=== PATIENT | male | born 1990 | race Caucasian/White ===

== ENCOUNTER 2020-03-06 09:45 | Emergency (ER) | payer OTHER, SELFPAY ==
[2018-09-08 11:49] VITALS: BMI 24.3
[2020-03-06 09:47] VITALS: BP 109/71; PULSE 71; RESP 18; TEMP 36.4; O2SAT 100; BMI 26.9
[2020-03-06 09:50] VITALS: BP 106/57; PULSE 83; RESP 16; O2SAT 100
[2020-03-06] MEDS: MethylPREDNISolone 125 MG/2 ML Vial IV (09:59)
[2020-03-06] MEDS: Famotidine 200 MG/20 ML MDV 20 MG in 0.9% Normal Saline (Pres. free 8 ML 300 MG IV (10:00)
[2020-03-06] MEDS: Ondansetron 4 MG/2 ML Vial IV (10:06)
--- NOTE | 2020-03-06 10:57 | ED.DCSUM_ITS ---
History of Present Illness Chief Complaint: Allergic Reaction Informant: Patient Onset: Today Context: Sudden Onset - Approximately 30 minutes prior to arrival Timing: Continuous Quality: Pruritic red blotchy rash, tingling of lips and throat, nausea Location: Generalized allergic reaction due to hymenoptera envenomation Current Severity: Moderate Maximum Severity: Moderate Worsened by: Nothing Relieved by: Improved with Benadryl prior to arrival Associated Symptoms: No change in voice, no dyspnea and no orthostatic symptoms Narrative: Patient is a 30-year-old male who presents after being stung by a bee. He was stung recently. His reaction was not as bad. He was not discharged with EpiPen. Patient denies headache, ocular, visual or auditory symptoms. Patient denies trouble with speech or swallowing. He denies cardiac or respiratory symptoms. He does report nausea without vomiting diarrhea. He denies orthostatic symptoms. He denies any other symptoms. Prior similar symptoms: Yes Recent Illness/Hospitalization: Yes - Past Medical History (1) Segmental and somatic dysfunction of cervical region Status: Acute (2) Segmental and somatic dysfunction of lumbar region Status: Acute (3) Segmental and somatic dysfunction of thoracic region Status: Acute Past Medical History - Allergies and Home Meds Allergies/Adverse Reactions: Allergies abacavir Allergy (Severe, Verified 06/27/17 16:03) Hives Sulfa (Sulfonamide Antibiotics) Allergy (Verified 05/30/18 09:59) Unknown Primary Care Physician: Lucía Monzon PA [Primary Care Provider] - Prior records reviewed: Yes Surgical History: no surgical history Lives: Spouse/ Significant Other Smoking Status: Never smoker Alcohol: Rare Drugs: None Review of Systems General: Denies: Chills, Fever, Sweats Eyes: Denies: Visual changes - bilaterally, Diplopia ENT: Reports: - - Of lips and tongue. He denies change in voice or difficulty swallowing.. Denies: Bilateral ear pain, Rhinorrhea, Sore throat Cardiovascular: Denies: Chest pain, Palpitations Respiratory: Denies: Dyspnea, Cough, Dyspnea on exertion Gastrointestinal: Reports: Nausea. Denies: Abdominal pain, Vomiting, Diarrhea, Melena, Hematochezia Genitourinary: Denies: Dysuria, Hematuria, Frequency Musculoskeletal: Denies: Back pain, Extremity Pain Skin: Reports: Rash. Denies: Wounds Neurological: Denies: Headache, Weakness, Numbness Allergy: Reports: Uticaria. Denies: Swelling of the mouth, Swelling of the tongue Physical Exam Vital Signs/Narrative: Vital Signs Temp Pulse Resp BP Pulse Ox 03/06/20 09:50 83 16 106/57 L 100 03/06/20 09:47 97.6 F L 71 18 109/71 100 Inital Vital Signs reviewed: Yes General: Well nourished, Well developed, No Acute Distress Head: Normocephalic, Atraumatic Eyes: Perrl, EOMI. Negative for: Pale conjunctiva, Scleral icterus ENT: Moist mucous membranes, No rhinorrhea, - - There is no evidence of angioedema. Trachea is midline. There is no inspiratory expiratory stridor. Neck: Supple, Nontender Cardiovascular: Regular rate, Regular rhythm, No murmurs. Negative for: Normal S1, Normal S2 Respiratory: No distress, CTA bilaterally, Chest nontender Abdomen: Soft, Nontender, Nondistended, Normal bowel sounds Back: Nontender, Normal Inspection Extremities: Nontender, No edema Skin: Normal color, No Trauma, Rash - Blotchy raised erythematous blanching generalized rash. Negative for: Cyanosis, Diaphoresis, Jaundice Neurological: Alert, Oriented x3, Cranial nerves II-XII grossly intact, Normal Strength, Normal Sensation Psychological: Normal affect, Normal Mood Diagnostic/Tx/Re-eval - Medical Decision Making With generalized allergic reaction. He does not have anaphylactic shock or allergic angioedema at this point. He was treated with H1 joycelyn, H2 joycelyn and Solu-Medrol. If symptoms progress we will treat with epinephrine. Patient's nurse, Breanne, informed me that patient feels that his throat is dry. Upon further questioning he feels like there is something stuck a large food bolus . He points to the suprasternal notch. There is a rumbling sound with auscultation of the neck. This was not noted initially. It is not high- pitched i.e. stridor. Since he is complaining of a foreign body in his throat with abnormal auscultatory findings he was treated with epinephrine. Of note, his rash has not improved with initial treatment. In my opinion, his rash is gotten worse. Patient reports marked improvement. He states there is improvement with the lump in his throat. His rash has resolved. Time of this entry is 1158. Patient was reassessed at 1320. His symptoms have totally resolved. Patient was discharged with prescription for EpiPen, prednisone, H1 and H2 joycelyn. 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
[2020-03-06 11:28] VITALS: BP 116/81; PULSE 76; RESP 17; O2SAT 100
[2020-03-06 12:00] VITALS: BP 113/64; PULSE 76; RESP 22; O2SAT 99
[2020-03-06 13:47] VITALS: BP 110/70; PULSE 72; RESP 18; TEMP 36.6; O2SAT 98
== END 2020-03-06 13:48 | disposition home or self-care (01) ==
PROVIDERS: Emergency Provider Emergency Medicine; PCP Physician Assistant
DX: T63.441A Toxic effect of venom of bees, accidental (unintentional), initial encounter (principal); T78.2XXA Anaphylactic shock, unspecified, initial encounter
CPT/HCPCS: 96372; 96374; 96375; 99285; J7030; J2405; J3490

== ENCOUNTER → 2023-07-26 | Outpatient (CLI) | payer OTHER, SELFPAY ==
[2023-07-26 13:19] LABS: Hepatitis B Surface Antibody Reactive
[2023-07-30 20:08] LABS: QNTFERON TB Mitogen Value > 10.00 IU/mL (.); QNTFERON TB Nil Value 0.03 IU/mL (.); QNTFERON TB1+ Ag Value 0.02 IU/mL (.); QNTFERON TB2+ Ag Value 0.01 IU/mL (.); QNTIFERON TB Positive Criteria Negative (Negative)
== END | disposition home or self-care (01) ==
LOC: MFPLAB 11:02
PROVIDERS: PCP Family Medicine; Visit Provider Family Medicine
DX: Z01.84 Encounter for antibody response examination (principal); Z11.1 Encounter for screening for respiratory tuberculosis
CPT/HCPCS: 36415; 86480; 86706

== ENCOUNTER → 2023-08-07 | Outpatient (CLI) | payer OTHER, SELFPAY ==
[2023-08-08 11:08] LABS: V-Zoster Virus Acute IgM < 0.91 index (0.00-0.90)
== END | disposition home or self-care (01) ==
LOC: MFPLAB 08:18
PROVIDERS: PCP Family Medicine; Visit Provider Family Medicine
DX: Z01.84 Encounter for antibody response examination (principal)
CPT/HCPCS: 36415; 86787